=== PATIENT | male | born 1995 | race Caucasian/White ===

== ENCOUNTER 2017-03-22 22:21 | Emergency (ER) | payer BC ==
[~2017-03-22] VITALS: Ht 185.4 cm; Wt 165.5 kg
[~2017-03-22 22:21] MED LIST: ATARAX,VISTARIL25 MG PO; BENADRYL50 MG PO; NO HOME MEDS; PREDNISONE20 MG PO; ZANTAC150 MG PO
[2017-03-23] MEDS ORDERED: ERYTHROMYC1 APPLICAT RIGHT EYE (02:06)
[2017-03-23 02:42] VITALS: BP 130/90
== END 2017-03-23 02:43 | disposition home or self-care (01) ==
LOC: EME 22:21
DX: S05.91XA Unspecified injury of right eye and orbit, initial encounter (principal); H11.31 Conjunctival hemorrhage, right eye; W20.8XXA Other cause of strike by thrown, projected or falling object, initial encounter